=== PATIENT | male | born 1980 ===

== ENCOUNTER 2018-01-17 13:56 | Emergency (ER) | payer OTHER ==
[2018-01-17 14:13] VITALS: BP 122/73; PULSE 88; RESP 16; TEMP 98.6; O2SAT 100
[2018-01-17] MEDS ORDERED: Albuterol-Ipratrop 3 mg / 0.5 (3 ml) UD INH STA (14:21)
[2018-01-17] MEDS ORDERED: Albuterol-Ipratrop 3 mg / 0.5 (3 ml) UD ONE (14:31)
--- NOTE | 2018-01-17 14:45 | ED PDOC ---
HPI: CCC, URI, Sore Throat Time Seen by Provider: 01/17/18 14:17 Chief Complaint (Nursing): ENT Problem Chief Complaint (Provider): sore throat, cough History Per: Patient History/Exam Limitations: no limitations Onset/Duration Of Symptoms: Days (x 4) Current Symptoms Are (Timing): Still Present Additional Complaint(s): 37 year old male presents to the ED complaining of productive cough with associated sore throat, onset 4 days ago. He reports the sputum as being green/ brown. Patient took Theraflu and Robitussin for treatment, but the symptoms persist. 2 weeks ago patient was prescribed a course of Amoxicillin which she took for 2 days only. No fever or chills, no associated body aches. PMD: none provided Past Medical History Reviewed: Historical Data, Nursing Documentation, Vital Signs Vital Signs: Last Vital Signs Temp 98.6 F 01/17/18 14:10 Pulse 88 01/17/18 14:10 Resp 16 01/17/18 14:10 BP 122/73 01/17/18 14:10 Pulse Ox 100 01/17/18 14:51 - Medical History PMH: No Chronic Diseases - Surgical History Surgical History: No Surg Hx - Family History Family History: States: No Known Family Hx - Living Arrangements Living Arrangements: With Family - Social History Current smoker - smoking cessation education provided: No Alcohol: None Drugs: Denies - Home Medications Home Medications: Ambulatory Orders Medication Instructions Recorded Albuterol HFA [Ventolin HFA 90 1 puff IH ASDIR #1 unit 01/17/18 mcg/actuation (8 g)] Azithromycin [Zithromax] 250 mg PO DAILY #6 tab 01/17/18 Benzonatate 200 mg PO TID PRN #20 capsule 01/17/18 - Allergies Allergies/Adverse Reactions: Allergies Allergy/AdvReac Type Severity Reaction Status Date / Time No Known Allergies Allergy Verified 01/17/18 14:10 Review of Systems ROS Statement: Except As Marked, All Systems Reviewed And Found Negative Constitutional: Negative for: Fever, Chills ENT: Positive for: Throat Pain Respiratory: Positive for: Cough, Sputum Gastrointestinal: Negative for: Nausea, Vomiting Neurological: Negative for: Headache Physical Exam - Reviewed Nursing Documentation Reviewed: Yes Vital Signs Reviewed: Yes - Physical Exam Appears: Positive for: Well, Non-toxic, No Acute Distress Head Exam: Positive for: ATRAUMATIC Skin: Positive for: Normal Color. Negative for: Rash Eye Exam: Positive for: EOMI, Normal appearance, PERRL ENT: Positive for: Nasal Congestion, Pharyngeal Erythema Cardiovascular/Chest: Positive for: Regular Rate, Rhythm Respiratory: Positive for: Decreased Breath Sounds. Negative for: Wheezing, Respiratory Distress Neurologic/Psych: Positive for: Alert, Oriented - ECG Interpretation Of ECG: NSR 77 bpm, no acute finding, reviewed by PA and ED attending O2 Sat by Pulse Oximetry: 100 (RA) Pulse Ox Interpretation: Normal - Other Rad CXR X-Ray: Interpreted by Me, Viewed By Me X-Ray Interpretation: no infiltrate Nebulizer Treatments/Peak Flow - Duonebs Number of Bronchodilator Doses given?: 1 (duoneb) - Pre/Post Peak Flow Pre Treatment Peak Flow: 300 Post treatment Peak Flow: 300 - Steroid Treatment Steroid: Not Clinically Indicated - Clinical Response Clinical Response: Improved Medical Decision Making Medical Decision Making: Time: 14:17 Impression: 37 year old male with cough and sore throat Initial Plan: --Chest x-ray --Duoneb 3 ml INH --Motrin 600 mg PO --Tylenol 650 mg PO --Throat culture --Nebulizer treatment --Peak flow pre/post --rapid strep Prescription provided for Zithromax, Tessalon Perles and Ventolin inhaler. Patient was advised to follow up with primary doctor in 2-3 days. Scribe Attestation: Documented by Eliane Chávez, acting as a scribe for Trang Spence PA-C Provider Scribe Attestation: All medical record entries made by the Scribe were at my direction and personally dictated by me. I have reviewed the chart and agree that the record accurately reflects my personal performance of the history, physical exam, medical decision making, and the department course for this patient. I have also personally directed, reviewed, and agree with the discharge instructions and disposition. Disposition - Clinical Impression Clinical Impression: Pharyngitis, Bronchitis - Patient ED Disposition Is Patient to be Admitted: No Counseled Patient/Family Regarding: Studies Performed, Diagnosis, Need For Followup, Rx Given - Disposition Referrals: [facility] [Outside] Disposition: Routine/Home Disposition Time: 15:34 Condition: STABLE Additional Instructions: Take prescription as directed. [id number] Tylenol or Advil for pain and fever as needed. Follow-up with primary doctor in 2-3 days. Prescriptions: Albuterol HFA [Ventolin HFA 90 mcg/actuation (8 g)] 1 puff IH ASDIR #1 unit Azithromycin [Zithromax] 250 mg PO DAILY #6 tab Benzonatate 200 mg PO TID PRN #20 capsule PRN Reason: Cough Instructions: Acute Bronchitis, Adult (DC), Sore Throat, Adult (DC) Forms: [employer] ([place])
--- NOTE | 2018-01-18 10:23 | RAD ---
HISTORY: cough COMPARISON: No prior. TECHNIQUE: Chest PA and lateral FINDINGS: LUNGS: No active pulmonary disease. PLEURA: No significant pleural effusion identified. No pneumothorax apparent. CARDIOVASCULAR: Normal. OSSEOUS STRUCTURES: No significant abnormalities. VISUALIZED UPPER ABDOMEN: Normal. OTHER FINDINGS: None. IMPRESSION: No active disease.
== END 2018-01-17 15:49 | disposition home or self-care (01) ==
LOC: H.ER 13:56
DX: J40 Bronchitis, not specified as acute or chronic (principal); J02.9 Acute pharyngitis, unspecified